=== PATIENT | female | born 1995 | race Caucasian/White ===

== ENCOUNTER → 2023-10-22 | Outpatient (CLI) | payer OTHER ==
--- NOTE | 2023-10-23 14:03 | MR ---
EXAMINATION TYPE: MR knee LT wo con DATE OF EXAM: 10/22/2023 COMPARISON: None HISTORY: Left knee pain x 3 weeks. TECHNIQUE: Multiplanar, multisequence imaging of the left knee is performed without IV contrast. FINDINGS: Exam is limited by the patient's body habitus. There is no bone contusion or fracture. There is a small joint effusion. There is marked soft tissue edema in the anterolateral and lateral soft tissues of the knee. Evaluation is somewhat limited but there is no definite meniscal tear. Cruciate and collateral ligaments are intact. The articular cartilage is are normal. The quadriceps and patellar tendons are intact. The anterior fat pads are normal. IMPRESSION: 1. Small joint effusion and soft tissue edema in the anterior lateral and lateral aspect of the knee. 2. No ligamentous or meniscal injury
== END | disposition home or self-care (01) ==
LOC: RADMRIMAIN 08:09
PROVIDERS: ATTEND Internal Medicine
DX: M25.462 Effusion, left knee (principal)